=== PATIENT | male | born 1960 | race Caucasian/White ===

== ENCOUNTER 2016-08-15 06:46 | Day surgery (SDC) | payer OTHER ==
[2016-08-15] VITALS (9 sets, daily range): BP systolic 123–147; BP diastolic 60–73; PULSE 62–76; RESP 18–20; TEMP 97.4–98.3; O2SAT 95–100
[~2016-08-15] VITALS: Ht 172.7 cm; Wt 80.0 kg
[2016-08-15] MEDS ORDERED: LEVO137T2 PO (07:14)
[2016-08-15] MEDS ORDERED: AFRI0.052 EACH NARE (07:14)
[2016-08-15] MEDS ORDERED: FAMO1TAB30 PO (07:14)
[2016-08-15] MEDS ORDERED: AMLO5TAB2 PO (07:14)
[2016-08-15] MEDS ORDERED: LISI-519 PO (07:14)
[2016-08-15] MEDS ORDERED: FLUT50SP EACH NARE (07:14)
[2016-08-15] MEDS ORDERED: CLOP75TA PO (07:14)
[2016-08-15] MEDS ORDERED: LEVO125T4 PO (07:14)
[2016-08-15] MEDS ORDERED: ALLO300T2 PO (07:14)
[2016-08-15] MEDS ORDERED: RANI150C PO (07:14)
[2016-08-15] MEDS ORDERED: AZEL1SPR2 EACH NARE (07:14)
[2016-08-15] MEDS ORDERED: SODIUM CHLOR 0.9% 1000 ML INJ 1,000 ML IV SCH (07:15)
[2016-08-15] MEDS ORDERED: LIDOCAINE 1%/EPINEPHrine 1:100,000 SOLN 20 ML VIAL ONE (07:19)
[2016-08-15] MEDS ORDERED: fentaNYL CITRATE 250 MCG/5 ML AMP ONE (07:27)
[2016-08-15] MEDS ORDERED: MIDAZOLAM HCL 5 MG/5 ML VIAL ONE (07:27)
[2016-08-15] MEDS ORDERED: THROMBIN (TOPICAL) 5,000 UNIT VIAL ONE (08:27)
[2016-08-15 09:42] LABS: BASOPHIL % 0.4 % (0.0-2.0); HEMATOCRIT 37.8 % (39.0-51.0); LYMPH % 39.7 % (9.0-44.0); LYMPHOCYTE # 3.2 TH/MM3 (1.0-4.8); MEAN CELL VOLUME 83.4 FL (80.0-100.0); MEAN CORPUSCULAR HEMOGLOBIN 28.5 PG (27.0-34.0); MEAN CORPUSCULAR HGB CONC 34.1 % (32.0-36.0); MONO % 10.5 % (0.0-8.0); NEUT % 49.4 % (16.0-70.0); PLATELET COUNT 176 TH/MM3 (150-450); RED BLOOD COUNT 4.53 MIL/MM3 (4.50-5.90); RED CELL DISTRIBUTION WIDTH 15.7 % (11.6-17.2)
[2016-08-15 09:48] LABS: HEMO FLAGS AUTO DIFF
--- NOTE | 2016-08-15 10:51 | RADRPT ---
EXAM DATE/TIME: 08/15/2016 08:01 [place] COMPARISON: No previous studies available for comparison. INDICATIONS : Right renal biopsy for function. SEDATION TIME: 30 minutes BIOPSY SITE: Right kidney MEDICATION(S): 1.) 3.5 mg midazolam (Versed) IV 2.) 175 mg fentanyl (Sublimaze) IV DEVICE(S): 1.) 17 gauge Temno coaxial 2.) 18 gauge Temno core biopsy needle 3.) Gelfoam MEDICAL HISTORY : Gastroesophageal reflux disease. Hernia, hiatal. Renal insufficiency. Hypertension. SURGICAL HISTORY : None. ENCOUNTER: Initial ACUITY: 1 day PAIN SCORE: 0/10 LOCATION: Right kidney A total of two core specimen(s) were obtained and sent to the laboratory for pathologic evaluation. PROCEDURE: 1. CT guided renal biopsy. 2. Conscious sedation with continuous EKG and oximetry monitoring. 3. EKG and oximetry remained stable throughout the procedure. Prior to the procedure informed consent was obtained. Any appropriate prior imaging studies were rev iewed. Using automated exposure control and adjustment of the mA and/or kV according to patient size, radiat ion dose was kept as low as reasonably achievable to obtain optimal diagnostic quality images. The site was prepped in a sterile fashion. Full sterile technique was used, including cap, mask, amelia rile gloves and gown and a large sterile sheet. Hand hygiene and 2% chlorhexidine and/or betadine/al cohol prep was utilized per protocol for cutaneous antisepsis. The skin and subcutaneous tissues wer e infiltrated with local anesthetic solution. With CT guidance the previously identified target was localized. Biopsy was performed using the presc ribed needle as above. Adequate hemostasis was obtained with compression at the puncture site. Follow-up CT scan reveals no normal hemorrhage. Thrombin/Gelfoam was injected in the perirenal space along the lower pole. The patient tolerated the procedure well and and no significant complications. The patient was return ed to the Radiology Outpatient Unit in stable condition. CONCLUSION: Successful CT guided biopsy of the lower pole right kidney. Wyatt Villalba MD on August 15, 2016 at 10:48 Board Certified Radiologist. This report was verified electronically.
[2016-08-15 10:53] LABS: BANDS 2 % (0-6); NEUTROPHIL # MANUAL DIFF 3.9 TH/MM3 (1.8-7.7); POLYS (SEG NEUTROPHILS) 47 % (16-70); WBC DIFF SAMPLE 100
[2016-08-15 10:54] LABS: SMUDGE CELLS PRESENT PRESENT
[2016-08-15 10:55] LABS: SCAN/DIFF FINAL DIFF MANUAL
[2016-08-15 11:46] LABS: AUTOMATED NEUTROPHIL # 4.5 TH/MM3 (1.8-7.7); BASOPHIL # 0.1 TH/MM3 (0-0.2); BASOPHIL % 0.8 % (0.0-2.0); EOSINOPHIL % 0.2 % (0.0-4.0); LYMPH % 28.6 % (9.0-44.0); LYMPHOCYTE # 2.1 TH/MM3 (1.0-4.8); MEAN CORPUSCULAR HEMOGLOBIN 28.3 PG (27.0-34.0); MEAN CORPUSCULAR HGB CONC 34.1 % (32.0-36.0); MONO % 9.1 % (0.0-8.0); NEUT % 61.3 % (16.0-70.0); PLATELET COUNT 191 TH/MM3 (150-450); RED BLOOD COUNT 4.82 MIL/MM3 (4.50-5.90); RED CELL DISTRIBUTION WIDTH 15.6 % (11.6-17.2); WHITE BLOOD COUNT 7.3 TH/MM3 (4.0-11.0)
[2016-08-15 11:48] LABS: HEMO FLAGS AUTO DIFF
[2016-08-15 12:33] LABS: BANDS 7 % (0-6); METAMYELOCYTES 2 % (0-1); MYELOCYTES 5 % (0-0); NEUTROPHIL # MANUAL DIFF 5.7 TH/MM3 (1.8-7.7); POLYS (SEG NEUTROPHILS) 64 % (16-70); WBC DIFF SAMPLE 100
[2016-08-15 12:34] LABS: SCAN/DIFF FINAL DIFF MANUAL
== END 2016-08-15 15:59 | disposition home or self-care (01) ==
LOC: HRAD 06:46 → HRIP 06:47 → HRAD 15:59
PROVIDERS: ATTEND Internal Medicine Nephrology
DX: N18.4 Chronic kidney disease, stage 4 (severe) (principal); I12.9 Hypertensive chronic kidney disease with stage 1 through stage 4 chronic kidney disease, or unspecified chronic kidney disease; R80.9 Proteinuria, unspecified; I10 Essential (primary) hypertension; K21.9 Gastro-esophageal reflux disease without esophagitis
CPT/HCPCS: 50200; 77012; 85007; 85027; J2250; J3010; J7030; 88305; 88313; 88350